=== PATIENT | male | born 1990 | race Caucasian/White ===

== ENCOUNTER 2018-02-28 03:57 | Emergency (ER) | payer BC ==
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
[2018-02-28 04:42] LABS: VBG BASE EXCESS 6.7 (-2.0-2.0); VBG CARBOXYHEMOGLOBIN 2.8 % T HGB (0.0-6.9); VBG HCO3- 28.7 meq/L (22-28); VBG HEMOGLOBIN 14.5; VBG O2 SATURATION 58.7 (95-100); VBG POTASSIUM 3.2 (3.5-5.1)
[2018-02-28 04:43] LABS: VBG pH 7.56 (7.32-7.42)
[2018-02-28 04:46] LABS: BASOPHIL % 0.6 % (0.0-0.4); Basophil (Absolute #) 0.04 (0-0.4); Eosinophil % 1.3 % (0.00-5.0); Eosinophil (Absolute #) 0.09 (0-0.5); Granulocyte Absolute (ANC) 4.16 (1.4-6.9); Hematocrit 39.3 % (42-50); Lymphocyte (Absolute #) 2.09 (1.0-4.6); Lymphocytes % 29.7 % (24.0-44.0); Mean Cell Volume 81.5 fl (78-100); Mean Corpuscular Hgb Concent. 35.6 g/dl (32-36); Monocyte (Absolute #) 0.66 (0.0-1.3); Monocytes % 9.4 % (0.0-12.0); Platelet Count 282 K/mm3 (150-450); Red Blood Count 4.82 M/mm3 (4.1-5.6); Red Cell Distribution Width 12.6 % (11.5-14.0)
[2018-02-28] MEDS ORDERED: BENADRYL 50 MG/ML ONE (05:00)
[2018-02-28 05:02] LABS: ALBUMIN 4.5 g/dL (3.5-5.0); ALKALINE PHOSPHATASE 61 U/L (38-126); ANION GAP 16.6 MEQ/L (5-15); BLOOD UREA NITROGEN 17 mg/dL (9-20); CHLORIDE 104 mmol/L (98-107); Calcium 9.8 mg/dL (8.4-10.2); Carbon Dioxide 25 mmol/L (22-30); Creatinine 1 0.84 mg/dL (0.66-1.25); Glucose 104 mg/dL (74-106); Potassium 3.5 mmol/L (3.5-5.1); SGOT/AST 36 U/L (17-59); SGPT/ALT 47 U/L (0-50); SODIUM 143 mmol/L (137-145); Total Protein 8.1 g/dL (6.3-8.2)
[2018-02-28 05:03] LABS: Amphetamine,Urine NEGATIVE (NEGATIVE); Barbiturate,Urine NEGATIVE (NEGATIVE); Benzodiazepine,Urine NEGATIVE (NEGATIVE); Cocaine,Urine NEGATIVE (NEGATIVE); Methadone,Urine NEGATIVE (NEGATIVE); Opiate,Urine NEGATIVE (NEGATIVE); PCP,Urine NEGATIVE (NEGATIVE); THC,Urine NEGATIVE (NEGATIVE)
[2018-02-28] MEDS: BENADRYL 50 MG/ML IV ONE (05:03)
[2018-02-28 05:05] VITALS: PULSE 67
[2018-02-28 05:35] VITALS: BP 122/84
[2018-02-28 05:38] VITALS: O2SAT 100
== END 2018-02-28 06:54 | disposition home or self-care (01) ==
LOC: ED 03:57
DX: F41.9 Anxiety disorder, unspecified (principal); F45.8 Other somatoform disorders
CPT/HCPCS: 36000; 36415; 80053; 80307; 82805; 85025; 93005; 96374; 99284; J1200

== ENCOUNTER 2019-09-13 09:13 | Emergency (ER) | payer BC ==
[2019-09-13 09:49] VITALS: O2SAT 99
[2019-09-13 10:47] LABS: ALBUMIN 4.3 g/dL (3.5-5.0); ALKALINE PHOSPHATASE 50 U/L (38-126); ANION GAP 11.8 MEQ/L (5-15); BLOOD UREA NITROGEN 17 mg/dL (9-20); CHLORIDE 105 mmol/L (98-107); CK-Creatinine Phosphokinase 110 U/L (55-170); Calcium 9.1 mg/dL (8.4-10.2); Carbon Dioxide 28 mmol/L (22-30); Creatinine 1 0.77 mg/dL (0.66-1.25); Glucose 107 mg/dL (74-106); Potassium 4.1 mmol/L (3.5-5.1); SGOT/AST 27 U/L (17-59); SGPT/ALT 38 U/L (0-50); SODIUM 140 mmol/L (137-145); Total Protein 7.8 g/dL (6.3-8.2)
[2019-09-13 11:01] LABS: Absolute Neutrophil Ct (ANC) 3.42 (1.4-6.9); BASOPHIL % 0.6 % (0.0-0.4); Basophil (Absolute #) 0.03 (0-0.4); Eosinophil (Absolute #) 0.16 (0-0.5); Hematocrit 38.7 % (42-50); Lymphocyte (Absolute #) 1.32 (1.0-4.6); Lymphocytes % 24.4 % (24.0-44.0); Mean Cell Volume 84.5 fl (78-100); Mean Corpuscular Hemoglobin 28.4 pg (26-32); Mean Corpuscular Hgb Concent. 33.6 g/dl (32-36); Mean Platelet Volume 9.3 fl (6-9.5); Monocyte (Absolute #) 0.49 (0.0-1.3); Platelet Count 274 K/mm3 (150-450); Red Blood Count 4.58 M/mm3 (4.1-5.6); Red Cell Distribution Width 12.8 % (11.5-14.0); White Blood Count 5.4 K/mm3 (4.0-10.5)
[2019-09-13 11:10] VITALS: BP 117/78; PULSE 65
--- NOTE | 2019-09-13 11:19 | ERPHSYRPT ---
- History of Present Illness Time Seen by Provider: 09/13/19 09:20 Source: patient Exam Limitations: no limitations Patient Subjective Stated Complaint: Pt states "I was at work and I started to get palpitations and feeling a little dizzy and weak. I have anxiety and I took a hydroxyzine and the crew at work told me to go home. I tried to go to [facility] and they sent me here." Triage Nursing Assessment: PT presented alert and oriented X 3, skin pwd. PT has sinus congestion, ambulates with an upright steady gait, able to speak in clear full sentences. PT in no apparent respiratory distress. Physician History: patient is a 29-year-old white male who presents with a complaint of palpitations lightheadedness dizziness while at work. He has a history of long- standing anxiety is presently on Zoloft and hydroxyzine. He did take and hydroxyzine prior to arrival and is feeling better upon his visit in the ER. He was sent directly from work. Timing/Duration: today Severity of Symptoms-Max: moderate Severity of Symptoms-Current: moderate Allergies/Adverse Reactions: No Known Drug Allergies Allergy (Verified 02/28/18 04:09) Home Medications: Sertraline HCl 100 mg PO HS 09/13/19 [History] Hx Tetanus, Diphtheria Vaccination/Date Given: Yes Hx Influenza Vaccination/Date Given: Yes Hx Pneumococcal Vaccination/Date Given: No Immunizations Up to Date: Yes - Past Medical History Pertinent Past Medical History: Yes Psycho-Social History: Anxiety - Past Surgical History Past Surgical History: Yes Other Surgical History: lymph node biopsy - Social History Smoking Status: Former smoker Exposure to second hand smoke: No Drug Use: none Patient Lives Alone: No - Review of Systems Constitutional: No Fever, No Chills Eyes: No Symptoms Ears, Nose, & Throat: No Symptoms Respiratory: No Cough, No Dyspnea Cardiac: No Chest Pain, No Edema, No Syncope Abdominal/Gastrointestinal: No Abdominal Pain, No Nausea, No Vomiting, No Diarrhea Genitourinary Symptoms: No Dysuria Musculoskeletal: No Back Pain, No Neck Pain Skin: No Rash Neurological: No Dizziness, No Focal Weakness, No Sensory Changes Psychological: Anxiety Endocrine: No Symptoms All Other Systems: Reviewed and Negative - Nursing Vital Signs Nursing Vital Signs: Initial Vital Signs Temperature 98.3 F 09/13/19 09:44 Pulse Rate 60 09/13/19 09:44 Respiratory Rate 14 09/13/19 09:44 Blood Pressure 137/87 09/13/19 09:44 O2 Sat by Pulse Oximetry 99 09/13/19 09:44 Pain Scale Pain Intensity 0 - Physical Exam General Appearance: no apparent distress Eyes, Ears, Nose, Throat Exam: normal ENT inspection, moist mucous membranes Neck Exam: normal inspection, non-tender, supple Respiratory Exam: normal breath sounds, lungs clear, No respiratory distress Cardiovascular Exam: regular rate/rhythm, No edema Gastrointestinal/Abdominal Exam: soft, No tenderness, No distention Extremities Exam: normal inspection, normal range of motion, No evidence of injury, No edema Current Suicidality: denies suicide plan Neurological Exam: alert, qa automation architect II-XII nml as tested, oriented x 3 Skin Exam: normal color, warm, dry, No rash SpO2: 99 - Radiology Exams Chest X-ray Interpretation: Interpreted by me, Negative Ordered Tests: Active Orders 24 hr Category Date Time Status EKG-ER Only STAT Care 09/13/19 09:53 Active CHEST 1 VIEW (PORTABLE) Stat Exams 09/13/19 09:54 Taken CBC W DIFF Stat Lab 09/13/19 10:17 Completed CK-Creatinine Phosphokinase Stat Lab 09/13/19 10:17 Completed CMP Stat Lab 09/13/19 10:17 Completed TROPONIN Q3H Lab 09/13/19 10:17 Completed TROPONIN Q3H Lab 09/13/19 13:00 Ordered TROPONIN Q3H Lab 09/13/19 16:00 Ordered TROPONIN Q3H Lab 09/13/19 19:00 Ordered TROPONIN Q3H Lab 09/13/19 22:00 Ordered Lab/Rad Data: Laboratory Result Diagrams 09/13/19 10:17 09/13/19 10:17 Laboratory Results 09/13/19 09/13/19 09/13/19 Range/Units 10:17 10:17 10:17 WBC 5.4 (4.0-10.5) K/mm3 RBC 4.58 (4.1-5.6) M/mm3 Hgb 13.0 (12.5-18.0) gm/dl Hct 38.7 L (42-50) % MCV 84.5 (78-100) fl MCH 28.4 (26-32) pg MCHC 33.6 (32-36) g/dl RDW 12.8 (11.5-14.0) % Plt Count 274 (150-450) K/mm3 MPV 9.3 (6-9.5) fl Gran % 63.0 (36.0-66.0) % Eos # (Auto) 0.16 (0-0.5) Absolute Lymphs (auto) 1.32 (1.0-4.6) Absolute Monos (auto) 0.49 (0.0-1.3) Lymphocytes % 24.4 (24.0-44.0) % Monocytes % 9.0 (0.0-12.0) % Eosinophils % 3.0 (0.00-5.0) % Basophils % 0.6 (0.0-0.4) % Absolute Granulocytes 3.42 (1.4-6.9) Basophils # 0.03 (0-0.4) Sodium 140 (137-145) mmol/L Potassium 4.1 (3.5-5.1) mmol/L Chloride 105 (98-107) mmol/L Carbon Dioxide 28 (22-30) mmol/L Anion Gap 11.8 (5-15) MEQ/L BUN 17 (9-20) mg/dL Creatinine 0.77 (0.66-1.25) mg/dL Estimated GFR > 60.0 ML/MIN Glucose 107 H (74-106) mg/dL Calcium 9.1 (8.4-10.2) mg/dL Total Bilirubin 0.40 (0.2-1.3) mg/dL AST 27 (17-59) U/L ALT 38 (0-50) U/L Alkaline Phosphatase 50 (38-126) U/L Creatine Kinase 110 (55-170) U/L Troponin I < 0.012 (0.000-0.034) ng/mL Serum Total Protein 7.8 (6.3-8.2) g/dL Albumin 4.3 (3.5-5.0) g/dL - Progress Progress: improved - Departure Departure Disposition: Home Clinical Impression: Anxiety Condition: Stable Critical Care Time: No Referrals: KAREN GUEVARA [Primary Care Provider] - Additional Instructions: anxiety
--- NOTE | 2019-09-13 15:16 | XRAY ---
Indication: Palpitations and dizziness. Comparison: November 27, 2018. Portable chest again demonstrates normal heart, lungs, and bony thorax.
== END 2019-09-13 11:42 | disposition home or self-care (01) ==
LOC: ED 09:13
DX: F41.9 Anxiety disorder, unspecified (principal)
CPT/HCPCS: 36415; 71045; 80053; 82550; 84484; 85025; 93005; 99284

== ENCOUNTER 2024-10-06 01:06 | Emergency (ER) | payer BC, OTHER ==
[2024-10-06 01:12] VITALS: TEMP 97.3; O2SAT 95
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
[2024-10-06 02:12] LABS: Absolute Neutrophil Ct (ANC) 7.57 x10^3/uL (1.78-5.38); BASOPHIL % 0.4 % (0.2-1.2); Basophil (Absolute #) 0.04 x10^3/uL (0.01-0.08); Eosinophil % 0.3 % (0.8-7.0); Eosinophil (Absolute #) 0.03 x10^3/uL (0.04-0.54); Hematocrit 37.4 % (40.1-51.0); IMMATURE GRAN # 0.03 x10^3u/L (0.001-0.031); IMMATURE GRAN % 0.3 % (0.001-0.429); Lymphocytes % 16.1 % (21.8-53.1); Mean Cell Volume 82.6 fL (79.0-92.2); Mean Corpuscular Hemoglobin 28.7 pg (25.7-32.2); Mean Corpuscular Hgb Concent. 34.8 g/dL (32.3-36.5); Mean Platelet Volume 9.3 fL (9.4-12.4); Monocyte (Absolute #) 0.68 x10^3/uL (0.30-0.82); Monocytes % 6.8 % (5.3-12.2); Neutrophil % 76.1 % (34.0-67.9); Platelet Count 281 x10^3/uL (163-337); Red Blood Count 4.53 x10^6/uL (4.63-6.08); Red Cell Distribution Width 12.7 % (11.6-14.4)
[2024-10-06 02:24] LABS: ALBUMIN 4.3 g/dL (3.5-5.0); ANION GAP 12.4 MEQ/L (5-15); BILIRUBIN,TOTAL 0.4 mg/dL (0.2-1.3); Calcium 9.4 mg/dL (8.4-10.2); EST GLOMERULAR FILTRATION RATE 100.7 ML/MIN; Potassium 3.8 mmol/L (3.5-5.1); Total Protein 7.5 g/dL (6.3-8.2)
[2024-10-06 02:50] LABS: HIV 1/2 ANTIBODY PRESUMPTIVE NEGATIVE (NEGATIVE); HIV p24 AG - SOURCE ONLY PRESUMPTIVE NEGATIVE (NEGATIVE)
[2024-10-06 03:45] VITALS: BP 123/78; PULSE 64; RESP 20
[2024-10-07 06:09] LABS: HBsAg Screen Negative (Negative); HCV Ab Non Reactive (Non Reactive); Hep B Core Ab, IgM Negative (Negative); RPR Non Reactive (Non Reactive)
[2024-10-07 07:23] LABS: HIV Screen 4th Generation wRfx Non Reactive (Non Reactive); Hep A Ab, IgM Negative (Negative)
== END 2024-10-06 03:55 | disposition home or self-care (01) ==
LOC: ED 01:06
DX: Z20.6 Contact with and (suspected) exposure to human immunodeficiency virus [HIV] (principal); S10.91XA Abrasion of unspecified part of neck, initial encounter; S00.83XA Contusion of other part of head, initial encounter; Y08.89XA Assault by other specified means, initial encounter
CPT/HCPCS: 36415; 80053; 80074; 85025; 86592; 86689; 87389; 99282; 99283